=== PATIENT | male | born 1970 | race Caucasian/White ===

== ENCOUNTER 2024-06-19 07:50 | Day surgery (SDC) | payer BC, SELFPAY ==
[2024-06-03 07:57] VITALS: BMI 35.7
[2024-06-03 08:21] LABS: % Basophils 0.6 % (0-2); % Eosinophils 2.9 % (0-6); % Immature Granulocytes 0.3 % (0-0.5); % Lymphocytes 27.9 % (20.5-51.1); % Monocytes 6.9 % (1.7-9.3); % Neutrophils 61.4 % (42.2-75.2); Absolute Eosinophils 0.2 10^3/uL (0-0.7); Absolute Lymphocytes 1.9 10^3/uL (1.2-3.4); Absolute Monocytes 0.5 10^3/uL (0.1-0.6); Absolute Neutrophils 4.2 10^3/uL (1.4-6.5); Hematocrit 49.5 % (39.0-52.0); Hemoglobin 16.6 g/dL (13.0-18.0); Mean Corp Hgb Conc. 33.5 g/dL (33.0-37.0); Mean Corpuscular Hgb 30.9 pg (27.0-31.0); Mean Platelet Volume 10.3 fL (7.4-10.4); Nucleated Red Blood Cells % 0 % (-); Platelet Count 186 10^3/uL (130-400); Red Blood Cell Count 5.38 10^6/uL (4.70-6.10); Red Cell Dist. Width 12.4 % (11.5-14.5); White Blood Cell Count 6.8 10^3/uL (4.8-10.8)
[2024-06-03 08:30] LABS: ALT (SGPT) 29 U/L (0-50); AST (SGOT) 22 U/L (17-59); Albumin 4.4 g/dl (3.5-5.0); Alkaline Phosphatase 66 U/L (38-126); Blood Urea Nitrogen 15 mg/dl (9-20); Carbon Dioxide 25 mmol/L (22-30); Chloride 105 mmol/L (98-107); Estimated Creatinine Clearance > 125 ml/min; Glucose 108 mg/dl (70-99); Magnesium 2.1 mg/dl (1.6-2.3); Potassium 4.8 mmol/L (3.5-5.1); Sodium 141 mmol/L (135-145); Total Protein 7.8 g/dl (6.3-8.2); eGFR > 60.00
[2024-06-03 08:34] LABS: INR 1.01; PT 13.6 Sec (11.4-14.6)
[2024-06-19] VITALS (15 sets, daily range): BP systolic 93–138; BP diastolic 54–93; BMI 35.7
--- NOTE | 2024-06-19 13:32 | ITS.CL.ABL ---
Circulation Manager - Ablation
Ablation
Procedure Report:
Primary Sales Development Consultant: Fartun Manuel MD
Procedure Date: 06/19/2024
Patient History:
Patient is a pleasant 53 year old male with a past medical history significant for dyslipidemia, sleep apnea on CPAP, recurrent diverticulitis and symptomatic persistent AF.
See H&P for complete details.
Indication:
Symptomatic persistent AF
Arrhythmia Specific History:
Prior Medical Therapies for Rate and Rhythm Control:
X Beta-jessica
[ ] Calcium channel-jessica
[ ] Amiodarone
[ ] Dronederone
[ ] Sotalol
[ ] Flecainide
[ ] Dofetilide
[ ] Options limited by bradycardia
[ ] Options limited by comorbid renal disease
Prior Procedural Therapies for AF/AFL:
X Cardioversion
[ ] Pulmonary Vein Isolation
[ ] Posterior Wall Isolation
[ ] Additional lines (Specify)
[ ] Surgical Villasenor-MAZE or PVI (Specify)
Procedure Performed:
X AF ablation procedure (14076) -- includes LA/CS pacing, trans-septal, 3D mapping, + ICE
[ ] +IV drug (86474)
[ ] +Other Arrhythmia (91206)
X +Other AF Line/ablation (75888) - posterior wall isolation (floor, roof, wall)
Risks and expected recovery has been explained in detail. Alternative options have been explored, and in a shared-decision making fashion we have decided that this was the most appropriate procedure.
Method
NPO status confirmed. Grounding pad applied. Defibrillator pads applied. Continuous surface ECG, pulse oximetry, and blood pressure were monitored. Procedure was performed under general anesthesia, with anesthesia services.
Both groins were clipped, prepped with Chloraprep, and draped in sterile fashion. Time out was called. Local anesthesia administered with bupivacaine. The right femoral vein was accessed for catheter placement, using ultrasound guidance (images
saved to record), micro-puncture needle/wire, and modified seldinger technique. 3 sheaths were placed. The following catheters were used:
[ ] Tacticath SE (D/F Curve) ablation catheter
X Viewflex 9Fr ICE catheter
X Inquiry decapolar 6Fr diagnostic catheter
[ ] CRD Hex 6Fr
[ ] Arctic Front Advance Cryoballoon ([ ]28mm[ ]23mm)
[ ] Achieve Advance mapping catheter ([ ]15mm[ ]20mm)
X FlexCath Contour 10 Fr with PulseSelect PFA Catheter
X Advisor HD Grid Mapping Catheter, SE
[ ] Acuson AcuNav 8 Fr ICE catheter
[ ]Other: [ ]
Intracardiac ultrasound (ICE) was carefully advanced into the right atrium to guide sheath placement over a J-wire, catheter placement, guide trans-septal puncture, identify potential complications, identify anatomic structures and ensure proper
contact between ablation catheter and tissue.
Heparin was given prior to trans-septal puncture. Heparin was given to achieve and maintain a target ACT of 300-400 seconds throughout the procedure.
Trans-septal access was performed under ICE guidance. The trans-septal puncture was performed with a SafeSept wire through a Brockenbrough needle assembly through the steerable sheath. The wire was visualized as it entered the LSPV and system
advanced under ICE guidance and fluoroscopy into the LA. The Brockenbrough needle assembly, SafeSept wire and sheath dilator were removed under negative pressure. LA pressure was measured and recorded.
ICE and 3D mapping was performed to identify relevant cardiac structures. A careful 3D map was created to assess for regions of low-voltage and abnormal electrogram signals using HD grid mapping catheter and PulseSelect catheter. Additional mapping
was performed as outlined below.
Prior to ablation, glycopyrrolate was provided. PulseSelect catheter was advanced over J-wire to the ostium of each vein. Pulmonary vein isolation was performed with ostial and antral lesions in a circumferential manner. Contact was visualized via
EAM, ICE, fluoroscopy, and EGM signals. Posterior wall isolation was performed by anchoring the J-wire within the pulmonary vein and placing the PulseSelect catheter in contact with the posterior wall as visualized by aforementioned methods.
Following completion of ablation lesions, sinus rhythm was restored with a 360J synchronized DCCV (failed 200J) and a post-ablation voltage/activation map was performed in sinus rhythm. Entrance and exit block were confirmed for each vein and the
posterior wall. Fractionated high frequency signal on the roof and floor outside of the left superior and inferior veins was noted on mapping post ablation. Intermittent capture noted at these locations. Repeat ablation performed in these locations.
Re-map demonstrated no high frequency component or capture.
Catheter and sheath were removed from the left atrium and post-ablation intracardiac echo evaluation was consistent with pre-ablation with no changes and no pericardial effusion and there is no left atrial thrombus or left ventricle thrombus seen.
Electrophysiology study was performed. Hemostasis was obtained with figure of 8 stitch for each groin and with manual pressure. Protamine was used for reversal.
Estimated Blood Loss
10 mL
Complications
None
Fluoroscopy: 2.6 minutes; 9.90 mGy; DAP 0.950
Baseline Intervals:
Rhythm: AF
QRS: 74 ms
Post-Procedure Intervals:
CO: 180 ms
QRS: 95 ms
QT: 403 ms
QTc: 415 ms
A-A: 941 ms
R-R: 941 ms
AVWB: 350 ms
AVNERP: 600/310 ms
Recommendations
- Bedrest with straight-leg precautions as ordered
- Admit with anticipate discharge home tomorrow after overnight observation
- Resume home medications as indicated
- Ok to resume anticoagulation tonight if patient and groin sites stable
- PPI daily for 30 days
- Plan for follow-up in office as scheduled
Vladimir Rausch DO, FACC
Clinical Cardiac Clasp Machine Operator
cc: Fartun Manuel MD; Marjorie Duque MD
[2024-06-19 14:54] LABS: ACT-LR - POC 266 Seconds (116-155)
[2024-06-19 15:08] LABS: ACT-LR - POC 306 Seconds (116-155)
[2024-06-19 15:35] LABS: ACT-LR - POC > 397 Seconds (116-155)
[2024-06-19 15:38] LABS: ACT-LR - POC 374 Seconds (116-155)
[2024-06-19 15:54] LABS: ACT-LR - POC 379 Seconds (116-155)
[2024-06-19 16:29] LABS: ACT-LR - POC 252 Seconds (116-155)
[2024-06-19] MEDS: BACTRIM DS 800 MG/160 MG 1 TABLET PO (18:26)
[2024-06-19] MEDS: TOPROL XL 50 MG PO (18:26)
--- NOTE | 2024-06-19 18:38 | PTCARENOTE ---
Rec'd pt from clinical laboratory director. AOX3 and pleasant. R groin w/ figure 8 sutures c/d/i. Pt aware of activity restrictions. Tele- SR w/ PACs. VSS. Pt has no complaints pain/discomfort at this time. Oriented pt to room. Currently in bed; call claudia w/in reach.
[2024-06-19 22:21] LABS: Glucose - Point of Care 142 mg/dl (70-99)
[2024-06-19] MEDS: ELIQUIS 5 MG PO (22:51)
--- NOTE | 2024-06-19 23:25 | PTCARENOTE ---
Received patient at change of shift. SR on the monitor, HR in the 80s. Figure 8 suture removed and dressing applied, see documentation. No complaints from pt at this time, call taylor within reach.
[2024-06-20 04:08] VITALS: BP 102/66
[2024-06-20 04:48] LABS: Hemoglobin 13.9 g/dL (13.0-18.0); Mean Corp Hgb Conc. 33.1 g/dL (33.0-37.0); Mean Corpuscular Hgb 31.1 pg (27.0-31.0); Mean Platelet Volume 10.4 fL (7.4-10.4); Platelet Count 213 10^3/uL (130-400); Red Blood Cell Count 4.47 10^6/uL (4.70-6.10); Red Cell Dist. Width 12.3 % (11.5-14.5); White Blood Cell Count 11.2 10^3/uL (4.8-10.8)
[2024-06-20 05:02] LABS: Blood Urea Nitrogen 22 mg/dl (9-20); Calcium 8.3 mg/dl (8.4-10.2); Carbon Dioxide 18 mmol/L (22-30); Chloride 108 mmol/L (98-107); Estimated Creatinine Clearance > 125 ml/min; Glucose 141 mg/dl (70-99); Magnesium 2.1 mg/dl (1.6-2.3); Potassium 4.6 mmol/L (3.5-5.1); Sodium 135 mmol/L (135-145); eGFR > 60.00
[2024-06-20 07:19] VITALS: BP 115/84
[2024-06-20] MEDS: TOPROL XL 25 MG PO (07:37)
[2024-06-20] MEDS: ELIQUIS 5 MG PO (07:37)
--- NOTE | 2024-06-20 08:07 | W.PN.CARDCBS ---
Addendum entered and electronically signed by Garcia Shah MD 06/20/24 09:18:
Patient seen and examined
Agree with VP SCIENTIFIC note and assessment
Agree with VP SCIENTIFIC plan
Exam:
HEENT normocephalic atraumatic
JVP 6
Cor regular
Lungs clear to auscultation bilaterally
Abdomen soft nontender positive bowel sounds
No extremity edema
Nonfocal neurologically
PCP: Marjorie Duque MD
CDY: Fartun Manuel MD
Impression:
Symptomatic persistent Afib
post PVI 06/19/24
Hyperlipidemia
TAWANDA/CPAP
Diverticulosis
former tobacco
Plan:
tele SR
OAC Eliquis
continue metoprolol
add PPI for 30 days
Activity restrictions reviewed
f/u Dr. Manuel in 2 mo
Home today with outpatient follow-up arranged
Original Note:
Today's Communication / Plan
-
post ablation stable for d/c home
Impression / Plan
-
PCP: Marjorie Duque MD
CDY: Fartun Manuel MD
Impression:
Symptomatic persistent Afib
post PVI 06/19/24
Hyperlipidemia
TAWANDA/CPAP
Diverticulosis
former tobacco
Plan:
post ablation feels good
groin stable
tele SR
[id number] =0
OAC Eliquis
continue metoprolol
add PPI for 30 days
Activity restrictions reviewed
f/u Dr. Manuel in 2 mo
Home today
Progress Note - Manager Customs
Subjective
Date of Service: June 20, 2024
denies cp, sob
Objective
Labs:
06/20/24 04:18
06/20/24 04:18
Labs
Hgb 13.9 g/dL (13.0-18.0) 06/20/24 04:18
Hct 42.0 % (39.0-52.0) 06/20/24 04:18
Plt Count 213 10^3/uL (130-400) 06/20/24 04:18
PT 13.6 Sec (11.4-14.6) 06/03/24 08:04
INR 1.01 06/03/24 08:04
Sodium 135 mmol/L (135-145) 06/20/24 04:18
Potassium 4.6 mmol/L (3.5-5.1) 06/20/24 04:18
BUN 22 mg/dl (9-20) H 06/20/24 04:18
Creatinine 0.9 mg/dL (0.7-1.3) 06/20/24 04:18
Glucose 141 mg/dl (70-99) H 06/20/24 04:18
Vital Signs and I&O:
Vital Signs
Temp Pulse Resp BP Pulse Ox
97.2 F 90 20 102/66 97
06/20/24 07:18 06/20/24 04:15 06/20/24 07:18 06/20/24 04:08 06/20/24 07:18
Vital Signs
Temp Pulse Resp BP Pulse Ox
97.2 F 90 20 102/66 97
06/20/24 07:18 06/20/24 04:15 06/20/24 07:18 06/20/24 04:08 06/20/24 07:18
Physical Exam
Physical Exam
NAD, AOX3
S1, S2, RRR
CTAB, non labored, no wheeze
SNTND bsx4
R fem site c/d/i no HT, soft
--- NOTE | 2024-06-20 08:52 | W.DS.TRANS ---
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
-
Discharge Instructions:
Discharge Diagnosis/Procedures AFib, s/p ablation
Diet Low Cholesterol
Driving Restrictions No driving for 24 hours
Instructions:
Stand-Alone Forms: DC Instructions- Cath/EP Lab
Return to Work
Changes to Home Medications: No
Discharge Medications:
DC Medications w/original date entered in [email or web address]
acetaminophen 500 mg tablet 500 mg PO DAILY PRN headache 05/29/24
apixaban 5 mg tablet (Eliquis) 5 mg PO BID 05/29/24
efinaconazole 10 % topical solution with applicator (Jublia) 1 applic topical DAILY Toe 05/29/24
loratadine 10 mg tablet (Claritin) 10 mg PO DAILY Allergies 05/29/24
metoprolol succinate 25 mg tablet,extended release 24 hr 50 mg PO QPM 05/29/24
metoprolol succinate 25 mg tablet,extended release 24 hr 25 mg PO DAILY 06/19/24
pantoprazole 40 mg tablet,delayed release (Protonix) 40 mg PO DAILY #30 tabs 06/20/24
Home Medication Changes
Pending Results: No
--- NOTE | 2024-06-20 08:53 | PTCARENOTE ---
Assumed care at 0700. Patient AOx3, denies pain. NSR, VSS. Right groin site soft, dressing CDI.
--- NOTE | 2024-06-20 09:59 | PTCARENOTE ---
Discharged teaching completed, patient verbalized understanding. Written and verbal instructions given to patient. Patient escorted to main lobby in a wheelchair
[2024-06-20 11:37] LABS: ACT-LR - POC > 397 Seconds (116-155)
== END 2024-06-20 10:01 | disposition home or self-care (01) ==
LOC: CATH 07:50
PROVIDERS: Nurse Practitioner; ATTENDING PHYSICIAN Internal Medicine Cardiovascular Disease; FAMILY PHYSICIAN Family Medicine; OTHER PHYSICIAN Internal Medicine Cardiovascular Disease
DX: I48.19 Other persistent atrial fibrillation (principal); R06.09 Other forms of dyspnea; R00.2 Palpitations; E78.5 Hyperlipidemia, unspecified; G47.33 Obstructive sleep apnea (adult) (pediatric); E66.9 Obesity, unspecified; Z68.35 Body mass index [BMI] 35.0-35.9, adult; Z87.891 Personal history of nicotine dependence; Z79.01 Long term (current) use of anticoagulants
CPT/HCPCS: C1732; C1894; C1769; C1733; C1766; 36415; 75572; 76937; 80048; 80053; 82962; 83735; 85025; 85027; 85347; 85610; 86850; 86900; 86901; 93005; 93656; 93657; Q9967

== ENCOUNTER 2025-02-14 10:54 | Day surgery (SDC) | payer BC, SELFPAY ==
[2025-01-24 13:04] VITALS: BMI 37.5
[2025-01-24 13:29] LABS: Hematocrit 47.6 % (39.0-52.0); Hemoglobin 15.9 g/dL (13.0-18.0); Mean Corp Hgb Conc. 33.4 g/dL (33.0-37.0); Mean Corpuscular Volume 93.5 fL (80.0-94.0); Nucleated Red Blood Cells % 0 % (-); Platelet Count 179 10^3/uL (130-400); Red Cell Dist. Width 12.5 % (11.5-14.5)
[2025-01-24 13:42] LABS: INR 1.01; PT 13.6 Sec (11.4-14.6)
[2025-01-24 13:54] LABS: ALT (SGPT) 24 U/L (0-50); AST (SGOT) 20 U/L (17-59); Albumin 4.1 g/dl (3.5-5.0); Alkaline Phosphatase 62 U/L (38-126); Blood Urea Nitrogen 21 mg/dl (9-20); Calcium 9.2 mg/dl (8.4-10.2); Carbon Dioxide 28 mmol/L (22-30); Chloride 107 mmol/L (98-107); Estimated Creatinine Clearance 124 ml/min; Glucose 84 mg/dl (70-99); Magnesium 2.0 mg/dl (1.6-2.3); Potassium 4.3 mmol/L (3.5-5.1); Sodium 140 mmol/L (135-145); Total Protein 7.1 g/dl (6.3-8.2); eGFR > 60.00
--- NOTE | 2025-01-24 14:00 | HPS.HSE ---
Family Physician
-
Family Physician: Marjorie Duque
Chief Complaint
-
Persistent atrial fibrillation.
History of Present Illness
The patient is a 54 year old male presenting today for persistent atrial fibrillation. The patient reports a history of shortness of breath, most notably with climbing the stairs, fatigue, and lethargy associated with his arrhythmia. He
previously underwent 2 cardioversions and pulmonary vein isolation with Dr. Vladimir Rausch in June 2024. He felt well after his ablation until his atrial fibrillation returned in October 2024. He is on pharmacological therapy with Metoprolol
Succinate. He does report compliance with Eliquis for oral anticoagulation. He is interested in pursuing pulmonary vein isolation again for more definitive arrhythmia management. He denies any current complaints today such as chest pain and
shortness of breath at rest, palpitations, nausea, vomiting, diarrhea, lightheadedness, dizziness, cough, sore throat, or fever.
Medical History
Past Medical History
Past Medical History: Reports Other
Additional Past Medical History:
1. Persistent atrial fibrillation, status post cardioversion x2 and pulmonary vein isolation 06/2024; pharmacological therapy with Metoprolol Succinate and oral anticoagulation with Eliquis.
2. Hyperlipidemia.
3. Obstructive sleep apnea, compliant with CPAP.
4. Diverticular disease.
5. Nephrolithiasis.
6. Sciatica.
7. Chronic low back pain.
8. Osteoarthritis.
9. Obesity, BMI 37.5.
10. History of tobacco abuse.
Past Surgical History: Reports Other
Additional Past Surgical History:
1. Pulmonary vein isolation.
2. Cardioversion x2.
3. Right shoulder biceps tendon repair.
4. Hernia repair with mesh x2.
5. Dental extraction.
6. Colonoscopy x2.
Social History
Tobacco: Former Smoker (He is a former 1 pack per day cigarette smoker who quit tobacco use altogether in 2014. )
Alcohol: None (in the last 2 years. )
Living: With Family (in a 2 story townhouse. )
Family History
Family History: Not pertinent
Allergies / Home Medications
Allergy/Medication List:
Home medications:
1. Acetaminophen 1000 mg p.o. daily as needed.
2. Eliquis 5 mg p.o. twice a day.
3. Loratadine 10 mg p.o. daily as needed.
4. Metoprolol Succinate 75 mg p.o. every evening.
Allergies: No known allergies.
Review of Systems
-
A 12 point ROS was completed and negative except as noted: Yes
Physical Exam
Vital Signs
Blood pressure 129/94. Heart rate 89. Respirations 18. Pulse ox 98% on room air.
Height 5 feet, 11.5 inches. Weight 123.6 kg. BMI 37.5.
Physical Exam
General: Well Developed, Well Nourished and No Apparent Distress
HEENT: NormoCephalic, Moist mucous membranes, Atraumatic and PERRLA
Respiratory: Clear
Cardiac: Irregular Rhythm
GI: Soft, Non Tender, Non Distended and Other (Obese. )
Musculoskeletal: No Edema and Normal Gait & Station
Skin: Warm and Dry
Neuro: AO x 3 and Nonfocal/grossly intact
Laboratory Results
-
01/24/25 13:12
01/24/25 13:12
Laboratory Results
PT 13.6 Sec (11.4-14.6) 01/24/25 13:12
INR 1.01 01/24/25 13:12
Total Bilirubin 1.1 mg/dl (0.2-1.3) 01/24/25 13:12
AST 20 U/L (17-59) 01/24/25 13:12
ALT 24 U/L (0-50) 01/24/25 13:12
Alkaline Phosphatase 62 U/L (38-126) 01/24/25 13:12
Magnesium 2.0.
Type and screen O positive.
EKG 01/24/2025: Atrial fibrillation.
Chest CT 01/24/2025: No evidence for pulmonary vein stenosis in this patient with a history of previous ablation procedure. Short segment common vestibule for the left superior and inferior pulmonary veins, fairly commonly seen and considered normal
variation. Mild enlargement of the left atrium with no evidence for left atrial thrombus. The lungs appear clear.
Impression/Plan
-
IMPRESSION/PLAN:
1. Persistent atrial fibrillation: The patient is in need of a pulmonary vein isolation with Dr. Vladimir Rausch on 02/12/2025. The benefits and risks of the procedure have been explained to the patient. The patient understands these risks and wishes
to proceed. He will not be required to undergo a pre-procedural transesophageal echocardiogram as he has been compliant with his home oral anticoagulation. He is aware to continue Eliquis uninterrupted prior to his ablation. He will take no
medications the morning of his ablation.
[2025-02-14] VITALS (10 sets, daily range): BP systolic 91–153; BP diastolic 52–106
--- NOTE | 2025-02-14 13:36 | ITS.CL.ABL ---
District Manager [employer] - Ablation
Ablation
Procedure Report:
Primary Lokie Engineer: Dr Fartun Manuel
Procedure Date: 02/14/2025
Patient History:
Patient is a pleasant 54-year-old male with a past medical history significant for dyslipidemia, obesity, diverticulitis, sleep apnea on CPAP, symptomatic persistent atrial fibrillation with prior ablation.
See H&P for complete details.
Indication:
Symptomatic persistent atrial fibrillation with recurrence
Arrhythmia Specific History:
Prior Medical Therapies for Rate and Rhythm Control:
X Beta-jessica
[ ] Calcium channel-jessica
[ ] Amiodarone
[ ] Dronederone
[ ] Sotalol
X Flecainide
[ ] Dofetilide
[ ] Options limited by bradycardia
[ ] Options limited by comorbid renal disease
Prior Procedural Therapies for AF/AFL:
X Cardioversion
X Pulmonary Vein Isolation - PFA PVI/PWI (MDT Pulse Select) 06/19/2024
[ ] Posterior Wall Isolation
[ ] Additional lines (Specify)
[ ] Surgical Vlilasenor-MAZE or PVI (Specify)
Procedure Performed:
X AF ablation procedure (68202) -- includes LA/CS pacing, trans-septal, 3D mapping, + ICE
[ ] +IV drug (50732)
[ ] +Other Arrhythmia (00946)
X +Other AF Line/ablation (35554) x2 -- floor line, roof line, posterior wall isolation
Risks and expected recovery has been explained in detail. Alternative options have been explored, and in a shared-decision making fashion we have decided that this was the most appropriate procedure.
Method
NPO status confirmed. Grounding pad applied. Defibrillator pads applied. Continuous surface ECG, pulse oximetry, and blood pressure were monitored. Procedure was performed under general anesthesia, with anesthesia services.
Both groins were clipped, prepped with Chloraprep, and draped in sterile fashion. Time out was called. Local anesthesia administered with bupivacaine. The right femoral vein was accessed for catheter placement, using ultrasound guidance (images
saved to record), micro-puncture needle/wire, and modified seldinger technique. 3 sheaths were placed. The following catheters were used:
[ ] Tacticath SE (D/F Curve) ablation catheter
X Viewflex 9Fr ICE catheter
X Inquiry decapolar 6Fr diagnostic catheter
[ ] CRD Hex 6Fr
X Agilis 11.5 Fr Steerable Sheath
X Sphere-9 Ablation catheter
[ ] Advisor HD Grid Mapping Catheter, SE
[ ] Acuson AcuNav 8 Fr ICE catheter
[ ] Other: [ ]
A multipolar catheter were advanced to the coronary sinus. Intracardiac ultrasound (ICE) was carefully advanced into the right atrium to guide sheath placement over a J-wire, catheter placement, guide trans-septal puncture, identify potential
complications, identify anatomic structures and ensure proper contact between ablation catheter and tissue.
Heparin was given to achieve and maintain a target ACT of 300-400 seconds throughout the procedure.
Trans-septal access was performed under ICE guidance. The trans-septal puncture was performed with a SafeSept wire through a Brockenbrough needle assembly through the steerable sheath. The wire was visualized as it entered the LSPV and system
advanced under ICE guidance and fluoroscopy into the LA. The Brockenbrough needle assembly, SafeSept wire and sheath dilator were removed under negative pressure. LA pressure was measured and recorded.
ICE and 3D mapping was performed to identify relevant cardiac structures. A careful 3D map was created to assess for regions of low-voltage and abnormal electrogram signals using Sphere-9 catheter. Additional mapping was performed as outlined below.
A 360 j synchronized direct-current cardioversion (unsuccessful 200 J synchronized direct-current cardioversion) was performed prior to ablation for christian of sinus rhythm. Prior to ablation, glycopyrrolate was provided. Sphere 9 catheter was
advanced into the left atrium. Electroanatomic mapping was performed using the Sphere 9 catheter. Left superior and right superior veins were noted to reconnected. Additionally, roofline and posterior wall appeared to be reconnected as well.
Pulmonary vein isolation was performed using pulsed field ablation in a circumferential manner. Contact was visualized via EAM, ICE, fluoroscopy, and EGM signals.
After accomplishing pulmonary venous isolation, mapping identified additional areas likely to be extra PV contributors to atrial fibrillation. These areas demonstrated patchy low voltage as well as complex fractionated electrograms. These areas can
be sites for the formation of rotors which can drive and maintain atrial fibrillation. These areas are known to be significant contributors to initiation and perpetuation of atrial fibrillation.
Additional energy applications/additional ablation sets targeted extra PV contributors to atrial fibrillation.
Targets for additional PFA ablation included: LA posterior wall targeted with pulsed electric field energy isolating the posterior wall of the left atrium. Posterior wall isolation was performed by aforementioned methods using Sphere-9 catheter.
After ablation of the posterior wall, targets remained including:
- Inferior LA floor
- Anterior LA roof
- The ridge of tissue between the left atrial appendage and the left sided pulmonary veins (Ligament of Jayson)
These areas were ablated using pulsed electric field energy eliminating the extra PV contributors to atrial fibrillation.
Following completion of ablation lesions, a post-ablation voltage/activation map was performed in sinus rhythm. Entrance and exit block were confirmed for each vein and the posterior wall.
Catheter and sheath were removed from the left atrium and post-ablation intracardiac echo evaluation was consistent with pre-ablation with no changes and no pericardial effusion and there is no left atrial thrombus or left ventricle thrombus seen.
Electrophysiology study was performed. Programmed stimulation was performed and no arrhythmia was induced. Hemostasis was obtained with Vascade for each sheath and with manual pressure. Protamine was used for reversal.
Estimated Blood Loss
5 mL
Complications
None
Fluoroscopy: 3.1 minutes; 23.3 mGy; DAP 2.6
LA Pressure: Pre 10 mmHg, post 14 mmHg
Baseline Intervals:
Rhythm: AF
QRS: 95 ms
Post-Procedure Intervals:
[place]: 170 ms
QRS: 111 ms
QT: 438 ms
AVWB: 370 ms
AVNERP: 600/320 ms
AERP: 550/200 ms
Recommendations
- Bedrest with straight-leg precautions as ordered
- Anticipate same day discharge if patient meeting clinical metrics
- Resume home medications as indicated
- Ok to resume anticoagulation tonight if patient and groin sites stable
- Plan for follow-up in office as scheduled
Vladimir Rausch DO, FACC, FHRS
Clinical Cardiac Armhole Sewer
cc: Dr Fartun Manuel; Dr Marjorie Galan
[2025-02-14 14:11] LABS: ACT-LR - POC 311 Seconds (116-155)
[2025-02-14 14:27] LABS: ACT-LR - POC 355 Seconds (116-155)
[2025-02-14 14:53] LABS: ACT-LR - POC 364 Seconds (116-155)
[2025-02-14 15:07] LABS: ACT-LR - POC 182 Seconds (116-155)
--- NOTE | 2025-02-14 17:18 | W.PN.UPDATE ---
Update Note
Progress Note Update
54 yo WM s/p PVI (same day). He denies cp, sob, geovanny clears, R fem site vascade c/d/i, EKG SR PAC's. He will resume Eliquis tonight and continue metoprolol. Activity restrictions reviewed. He will f/u Dr. Manuel in 3 mo. He is for d/c home after
6pm if groin stable.
== END 2025-02-14 18:00 | disposition home or self-care (01) ==
LOC: CATH 10:54
PROVIDERS: ATTENDING PHYSICIAN Internal Medicine Cardiovascular Disease; FAMILY PHYSICIAN Family Medicine
DX: I48.19 Other persistent atrial fibrillation (principal); E66.9 Obesity, unspecified; E78.5 Hyperlipidemia, unspecified; G47.33 Obstructive sleep apnea (adult) (pediatric); G89.29 Other chronic pain; M54.50 Low back pain, unspecified; I49.1 Atrial premature depolarization; Z68.37 Body mass index [BMI] 37.0-37.9, adult; M19.90 Unspecified osteoarthritis, unspecified site; Z79.01 Long term (current) use of anticoagulants; Z87.442 Personal history of urinary calculi; Z87.891 Personal history of nicotine dependence; Z98.890 Other specified postprocedural states
CPT/HCPCS: C1733; C1894; C1730; C1759; C1766; 36415; 75572; 80053; 83735; 85025; 85347; 85610; 86850; 86900; 86901; 93005; 93656; 93657; C1760; Q9967